=== PATIENT | female | born 1995 | race Caucasian/White ===

== ENCOUNTER → 2021-06-30 | Outpatient (CLI) | payer BC ==
--- NOTE | 2021-06-30 15:22 | EEG ---
ELECTROENCEPHALOGRAM REPORT DATE OF SERVICE: 06/30/2021. CLINICAL HISTORY: This is a 26-year-old woman with reported syncopal episode. The video EEG is obtained to evaluate for seizure and epileptiform activity. RELEVANT MEDICATION: The patient is on Lamictal. EEG TYPE: A routine 21-channel EEG is performed with video using the 10/20 electrode placement system. DESCRIPTION: Wakefulness and drowsiness are obtained. During wakefulness, the posterior- dominant rhythm consists of low to moderate voltage that is well modulated and well sustained of 9-10 hertz activity. There is no physiological stage 2 sleep architecture seen. There is no focal slowing. Interictal and ictal is none. ACTIVATION PROCEDURE: Photic stimulation did evoke a posterior driving response at multiple low flash frequencies. There is no abnormality during the photic stimulation. Hyperventilation is not performed. CLINICAL INTERPRETATION: This is a normal routine EEG. There are no focal slowing, epileptiform discharges or seizure on the EEG. Clinical correlation is recommended. RECOMMENDATION: If there continues to be a concern for seizures, recommend prolonged ambulatory EEG or epilepsy monitoring unit (EMU). MMODL / IJN: [id number] / NANCY
== END ==
LOC: NEUROMAIN 08:08
PROVIDERS: ATTEND Family Medicine
DX: R55 Syncope and collapse (principal); Z88.2 Allergy status to sulfonamides
CPT/HCPCS: 95819

== ENCOUNTER 2022-03-29 19:14 | Emergency (ER) | payer BC ==
[2022-03-29 20:07] VITALS: RESP 16; TEMP 97.5
[2022-03-29 20:38] LABS: Appearance,Urine Cloudy (Clear); Bacteria,Urine Rare /hpf; Bilirubin,Urine Negative (Negative); Blood,Urine Small (Negative); Color,Urine Yellow; Glucose,Urine (UA) Negative (Negative); Hyaline Casts,Urine 1 /lpf (0-2); Ketones,Urine Trace (Negative); Leukocyte Esterase,Urine Moderate (Negative); Mucus,Urine Moderate /hpf; Nitrite,Urine Negative (Negative); Protein,Urine 1+ (Negative); RBC,Urine 60 /hpf (0-5); Specific Gravity,Urine 1.024 (1.001-1.035); Squamous Epithelial Cell,Urine 5 /hpf (0-4); Urobilinogen,Urine <2.0 mg/dL (<2.0); WBC,Urine 12 /hpf (0-5)
[2022-03-29] MEDS ORDERED: cefTRIAXone IN SWFI 1,000 MG/10 ML SYRINGE IVP STA (22:08)
--- NOTE | 2022-03-29 22:44 | US ---
EXAMINATION TYPE: US kidneys/renal and bladder DATE OF EXAM: 03/29/2022 COMPARISON: NONE CLINICAL HISTORY: flank pain. Left flank pain, patient is EXAM MEASUREMENTS: Right Kidney: 13.1 x 4.8 x 4.4 cm Left Kidney: 12.8 x 5.6 x 6.0 cm Right Kidney: No hydronephrosis or masses seen Left Kidney: mild hydronephrosis Bladder: mildly distended Bilateral Jets not visualized IMPRESSION: There is a mild left-sided hydronephrosis. No renal mass. No evidence of bladder mass.
[2022-03-29 23:19] LABS: Basophils % (A) 0 %; Eosinophils # (A) 0.1 k/uL (0-0.7); Eosinophils % (A) 2 %; HCT 32.2 % (34.0-46.0); HGB 10.1 gm/dL (11.4-16.0); Hypochromasia Slight; Lymphocytes # (A) 0.8 k/uL (1.0-4.8); Lymphocytes % (A) 9 %; MCH 26.9 pg (25.0-35.0); MCHC 31.4 g/dL (31.0-37.0); MCV 85.5 fL (80.0-100.0); Mean Platelet Volume 7.5; Monocytes # (A) 0.5 k/uL (0-1.0); Monocytes % (A) 6 %; Neutrophils # (A) 7.1 k/uL (1.3-7.7); Neutrophils % (A) 82 %; Platelet Count 307 k/uL (150-450); RBC 3.76 m/uL (3.80-5.40); RDW 14.8 % (11.5-15.5); WBC 8.6 k/uL (3.8-10.6)
[2022-03-29 23:39] LABS: ALT 18 U/L (4-34); African American GFR (CKD) >90 (>60 ml/min/1.73 sqM); Albumin 4.1 g/dL (3.5-5.0); Anion Gap 12 mmol/L; Blood Urea Nitrogen 9 mg/dL (7-17); Calcium 9.3 mg/dL (8.4-10.2); Carbon Dioxide 19 mmol/L (22-30); Chloride 104 mmol/L (98-107); Glucose 71 mg/dL (74-99); Non-African American GFR(CKD) >90 (>60 ml/min/1.73 sqM); Sodium 135 mmol/L (137-145); Total Bilirubin 0.5 mg/dL (0.2-1.3)
[2022-03-29] MEDS ORDERED: SODIUM CHLORIDE 0.9% 2,000 ML IV ONE (23:46)
--- NOTE | 2022-03-29 23:49 | US ---
EXAMINATION TYPE: US OB >= 14 wk fetus DATE OF EXAM: 03/29/2022 COMPARISON: None CLINICAL HISTORY: back pain Left side flank pain. TECHNIQUE: Transabdominal (TA) GESTATIONAL AGE / DATING Physician Established: (28 weeks/6 days) EDC: 06/15/2022 Dates by Current Scan: (30 weeks/2 days) EDC: 06/05/2022 Beta HCG (if available): Not available at this time SURVEY IUP: Single PLACENTA: Anterior PREVIA: No Previa ANA ROSA: 12.4 cm Normal CERVICAL LENGTH (transabdominal: norm > 3.0cm): 3.8 cm BIOMETRY PRESENTATION: Vertex BPD: 7.5 cm 30 weeks / 2 days HC: 27.9 cm 30 weeks / 4 days AC: 25.7 cm 30 weeks / 0 days FL: 5.7 cm 30 weeks / 0 days ESTIMATED WEIGHT IN GRAMS: 1490 grams ESTIMATED WEIGHT IN LBS/OZ: 3 lbs. 5 oz. WEIGHT PERCENTAGE BASED ON ESTABLISHED DATES: 79% HC/AC: 1.1 Normal FL/AC: 22% Normal HEART RATE: 138 bpm RHYTHM: Normal IMPRESSION: The ultrasound gestational age is 30 weeks and 2 days. The PATRICK is 06/05/2022. No complicating process seen.
[2022-03-29 23:57] LABS: Potassium 4.6 mmol/L (3.5-5.1)
[2022-03-29 23:58] LABS: AST 44 U/L (14-36); Alkaline Phosphatase 76 U/L (38-126)
--- NOTE | 2022-03-30 00:02 | ED ---
General Adult HPI - General Chief complaint: Back Pain/Injury Stated complaint: back pain Time Seen by Provider: 03/29/22 21:40 Source: patient Mode of arrival: ambulatory Limitations: no limitations - History of Present Illness Initial comments: Patient is a 26-year-old female presenting with chief complaint of left-sided flank pain. Patient is currently 29 weeks . Patient has been experiencing intermittent left-sided flank pain over the last day. She denies any dysuria, hematuria, fever, chills, nausea, vomiting, chest pain, shortness of breath, abdominal pain or pelvic pain, vaginal discharge or bleeding. - Related Data Previous Rx's Medication Instructions Recorded traMADol HCl [Ultram] 50 mg PO Q4H PRN #20 tab 08/03/14 Ibuprofen [Motrin] 600 mg PO Q8HR PRN #12 tab 05/02/15 Nitrofurantoin Monohyd/M-Cryst 100 mg PO Q12HR 7 Days #14 cap 03/30/22 [Macrobid] Allergies Allergy/AdvReac Type Severity Reaction Status Date / Time silver sulfadiazine Allergy Unknown Verified 03/29/22 20:07 [From Silvadene] Sulfa (Sulfonamide Allergy Unknown Verified 03/29/22 20:07 Antibiotics) sulfamethoxazole Allergy Unknown Verified 03/29/22 20:07 [From Septra] trimethoprim [From Septra] Allergy Unknown Verified 03/29/22 20:07 Review of Systems ROS Statement: Those systems with pertinent positive or pertinent negative responses have been documented in the HPI. ROS Other: All systems not noted in ROS Statement are negative. Past Medical History Additional Past Medical History / Comment(s): cognitive impairment History of Any Multi-Drug Resistant Organisms: None Reported Past Surgical History: Adenoidectomy, Tonsillectomy Past Psychological History: ADD/ADHD Smoking Status: Never smoker Past Alcohol Use History: None Reported Past Drug Use History: None Reported General Exam Limitations: no limitations General appearance: alert, in no apparent distress Head exam: Present: atraumatic, normocephalic, normal inspection Eye exam: Present: normal appearance, EOMI. Absent: scleral icterus, periorbital swelling Neck exam: Present: normal inspection Respiratory exam: Present: normal lung sounds bilaterally. Absent: respiratory distress, wheezes, rales, rhonchi, stridor Cardiovascular Exam: Present: regular rate, normal rhythm, normal heart sounds. Absent: systolic murmur, diastolic murmur, rubs, gallop, clicks Back exam: Present: normal inspection. Absent: CVA tenderness (R), CVA tenderness (L) Neurological exam: Present: alert, oriented X3, CN II-XII intact Psychiatric exam: Present: normal affect, normal mood Skin exam: Present: warm, dry, intact, normal color. Absent: rash Course Vital Signs 03/29/22 03/29/22 20:04 22:00 Temperature 97.5 F L Pulse Rate 97 Respiratory 16 Rate Blood Pressure 142/73 113/64 O2 Sat by Pulse 100 Oximetry Medical Decision Making - Medical Decision Making Patient is a 26-year-old female currently 29 weeks presenting with chief complaint of left-sided back pain. Has been ongoing for the last day. On examination no paraspinal muscle tenderness or CVA tenderness. heart tones are 137. WBC 8.6. Lactic acid 0.9. GFR, BUN, creatinine WNL. Urine shows small blood with 60 RBCs. Moderate leukocytes with 12 urine WBCs. Rare bacteria. Ultrasound shows left-sided hydronephrosis, and ultrasound shows no complicating process. I spoke with the patient's DEVELOPMENTAL TRAINING COUNSELOR Dr. Tucker. He stated that we should treat for UTI and have her follow-up in the office this week. She is given a dose of Rocephin while here in the ER, is being sent home with Macrobid twice a day for 7 days. Educated the patient on these findings and instructions to follow up with her DEVELOPMENTAL TRAINING COUNSELOR in office this week. I instructed her to call the office tomorrow morning to arrange the appointment. Continue taking Tylenol as needed. Report back to ER with any new or worsening symptoms. Discussed return parameters answered all questions. Patient conveyed verbal understanding and agreed with the plan. I discussed this case with my attending Dr. Rand - Lab Data Result diagrams: 03/29/22 22:49 03/29/22 22:49 Lab Results 03/29/22 03/29/22 03/29/22 Range/Units 20:08 22:49 22:49 WBC 8.6 (3.8-10.6) k/uL RBC 3.76 L (3.80-5.40) m/uL Hgb 10.1 L (11.4-16.0) gm/dL Hct 32.2 L (34.0-46.0) % MCV 85.5 (80.0-100.0) fL MCH 26.9 (25.0-35.0) pg MCHC 31.4 (31.0-37.0) g/dL RDW 14.8 (11.5-15.5) % Plt Count 307 (150-450) k/uL MPV 7.5 Neutrophils % 82 % Lymphocytes % 9 % Monocytes % 6 % Eosinophils % 2 % Basophils % 0 % Neutrophils # 7.1 (1.3-7.7) k/uL Lymphocytes # 0.8 L (1.0-4.8) k/uL Monocytes # 0.5 (0-1.0) k/uL Eosinophils # 0.1 (0-0.7) k/uL Basophils # 0.0 (0-0.2) k/uL Hypochromasia Slight Sodium 135 L (137-145) mmol/L Potassium 4.6 (3.5-5.1) mmol/L Chloride 104 (98-107) mmol/L Carbon Dioxide 19 L (22-30) mmol/L Anion Gap 12 mmol/L BUN 9 (7-17) mg/dL Creatinine 0.54 (0.52-1.04) mg/dL Est GFR (CKD-EPI)AfAm >90 (>60 ml/min/1.73 sqM) Est GFR (CKD-EPI)NonAf >90 (>60 ml/min/1.73 sqM) Glucose 71 L (74-99) mg/dL Plasma Lactic Acid Reggie (0.7-2.0) mmol/L Calcium 9.3 (8.4-10.2) mg/dL Total Bilirubin 0.5 (0.2-1.3) mg/dL AST 44 H (14-36) U/L ALT 18 (4-34) U/L Alkaline Phosphatase 76 (38-126) U/L Total Protein 7.0 (6.3-8.2) g/dL Albumin 4.1 (3.5-5.0) g/dL Urine Color Yellow Urine Appearance Cloudy H (Clear) Urine pH 6.0 (5.0-8.0) Ur Specific [place] 1.024 (1.001-1.035) Urine Protein 1+ H (Negative) Urine Glucose (UA) Negative (Negative) Urine Ketones Trace H (Negative) Urine Blood Small H (Negative) Urine Nitrite Negative (Negative) Urine Bilirubin Negative (Negative) Urine Urobilinogen <2.0 (<2.0) mg/dL Ur Leukocyte Esterase Moderate H (Negative) Urine RBC 60 H (0-5) /hpf Urine WBC 12 H (0-5) /hpf Ur Squamous Epith Cells 5 H (0-4) /hpf Urine Bacteria Rare H (None) /hpf Hyaline Casts 1 (0-2) /lpf Urine Mucus Moderate H (None) /hpf 03/29/22 Range/Units 23:13 WBC (3.8-10.6) k/uL RBC (3.80-5.40) m/uL Hgb (11.4-16.0) gm/dL Hct (34.0-46.0) % MCV (80.0-100.0) fL MCH (25.0-35.0) pg MCHC (31.0-37.0) g/dL RDW (11.5-15.5) % Plt Count (150-450) k/uL MPV Neutrophils % % Lymphocytes % % Monocytes % % Eosinophils % % Basophils % % Neutrophils # (1.3-7.7) k/uL Lymphocytes # (1.0-4.8) k/uL Monocytes # (0-1.0) k/uL Eosinophils # (0-0.7) k/uL Basophils # (0-0.2) k/uL Hypochromasia Sodium (137-145) mmol/L Potassium (3.5-5.1) mmol/L Chloride (98-107) mmol/L Carbon Dioxide (22-30) mmol/L Anion Gap mmol/L BUN (7-17) mg/dL Creatinine (0.52-1.04) mg/dL Est GFR (CKD-EPI)AfAm (>60 ml/min/1.73 sqM) Est GFR (CKD-EPI)NonAf (>60 ml/min/1.73 sqM) Glucose (74-99) mg/dL Plasma Lactic Acid Reggie 0.9 (0.7-2.0) mmol/L Calcium (8.4-10.2) mg/dL Total Bilirubin (0.2-1.3) mg/dL AST (14-36) U/L ALT (4-34) U/L Alkaline Phosphatase (38-126) U/L Total Protein (6.3-8.2) g/dL Albumin (3.5-5.0) g/dL Urine Color Urine Appearance (Clear) Urine pH (5.0-8.0) Ur Specific [place] (1.001-1.035) Urine Protein (Negative) Urine Glucose (UA) (Negative) Urine Ketones (Negative) Urine Blood (Negative) Urine Nitrite (Negative) Urine Bilirubin (Negative) Urine Urobilinogen (<2.0) mg/dL Ur Leukocyte Esterase (Negative) Urine RBC (0-5) /hpf Urine WBC (0-5) /hpf Ur Squamous Epith Cells (0-4) /hpf Urine Bacteria (None) /hpf Hyaline Casts (0-2) /lpf Urine Mucus (None) /hpf Disposition Clinical Impression: UTI (urinary tract infection) Disposition: HOME SELF-CARE Condition: Fair Instructions (If sedation given, give patient instructions): Flank Pain (ED), Back Pain (ED), Urinary Tract Infection in (ED) Additional Instructions: Follow up with Dr. Tucker in the office this week, call the office tomorrow morning to arrange the appointment. Take medication as prescribed. Take Tylen ol as needed for pain control. Report back to ER with any new or worsening symptoms. Prescriptions: Nitrofurantoin Monohyd/M-Cryst [Macrobid] 100 mg PO Q12HR 7 Days #14 cap Is patient prescribed a controlled substance at d/c from ED?: No Referrals: Latoya Delaney DO [Primary Care Provider] - 1-2 days Gil Tucker MD [STAFF PHYSICIAN] - 1-2 days Time of Disposition: 00:43
[2022-03-30 01:18] VITALS: BP 132/87; PULSE 102
== END 2022-03-30 01:17 | disposition home or self-care (01) ==
LOC: EC 19:14
DX: N39.0 Urinary tract infection, site not specified (principal); Z88.2 Allergy status to sulfonamides; Z88.8 Allergy status to other drugs, medicaments and biological substances
CPT/HCPCS: 36415; 80053; 83605; 85025; 81001; 87086; 76805; 76770; 99284; 96374; 96361; J0696

== ENCOUNTER 2022-04-17 19:51 | Outpatient (CLI) | payer BC ==
[2022-04-17] MEDS: LACTATED RINGERS 1,000 ML IV SCH ×2 (20:40→21:39)
[2022-04-17 20:45] LABS: Appearance,Urine Cloudy (Clear); Bilirubin,Urine Negative (Negative); Blood,Urine Large (Negative); Budding Yeast,Urine Few /hpf; Color,Urine Yellow; Glucose,Urine (UA) Negative (Negative); Ketones,Urine Trace (Negative); Leukocyte Esterase,Urine Small (Negative); Mucus,Urine Occasional /hpf; Nitrite,Urine Negative (Negative); PH, Urine 6.5 (5.0-8.0); Protein,Urine 1+ (Negative); RBC,Urine >182 /hpf (0-5); Specific Gravity,Urine 1.018 (1.001-1.035); Squamous Epithelial Cell,Urine 4 /hpf (0-4); Urobilinogen,Urine <2.0 mg/dL (<2.0); WBC,Urine 20 /hpf (0-5)
[2022-04-17 20:45] LABS: Glucose,Whole Blood 96 mg/dL (70-110)
[2022-04-17 22:03] VITALS: BP 127/73; PULSE 107; RESP 18; TEMP 97.9
== END 2022-04-17 21:50 | disposition home or self-care (01) ==
LOC: FBPOP 19:51
PROVIDERS: ATTEND Obstetrics & Gynecology
DX: O23.43 Unspecified infection of urinary tract in pregnancy, third trimester (principal); Z3A.32 32 weeks gestation of pregnancy; Z88.2 Allergy status to sulfonamides
CPT/HCPCS: 59025; 99214; 96365; 81001; 87086; J0690

== ENCOUNTER 2022-06-11 06:15 | Inpatient (IN) | payer BC ==
[2022-06-11] MEDS ORDERED: LIDOCAINE 0.5% (PF) 5 MG/ML (50 ML SDV) SQ PRN (06:37)
[2022-06-11] MEDS ORDERED: TERBUTALINE 1 MG/ML VIAL SQ PRN (06:37)
[2022-06-11] MEDS ORDERED: PENICILLIN G POTASSIUM 5,000,000 UNIT in DEXTROSE 5% IN WATER 100 ML IVPB STA ×2 (06:40)
[2022-06-11] MEDS ORDERED: OXYTOCIN 30 UNITS/500 ML NS 30 UNIT in SALINE 1 500ML.BAG IV SCH (06:45)
[2022-06-11 07:04] LABS: Glucose,Whole Blood 94 mg/dL (70-110)
[2022-06-11] MEDS: LACTATED RINGERS 1,000 ML IV SCH ×2 (07:14→15:55)
[2022-06-11 07:15] LABS: Basophils % (A) 0 %; Eosinophils # (A) 0.2 k/uL (0-0.7); Eosinophils % (A) 2 %; HCT 31.3 % (34.0-46.0); HGB 10.4 gm/dL (11.4-16.0); Hypochromasia Slight; Lymphocytes # (A) 0.8 k/uL (1.0-4.8); Lymphocytes % (A) 10 %; MCH 27.4 pg (25.0-35.0); MCHC 33.4 g/dL (31.0-37.0); MCV 82.2 fL (80.0-100.0); Mean Platelet Volume 7.8; Monocytes # (A) 0.4 k/uL (0-1.0); Monocytes % (A) 5 %; Neutrophils # (A) 6.4 k/uL (1.3-7.7); Neutrophils % (A) 80 %; Platelet Count 318 k/uL (150-450); RBC 3.81 m/uL (3.80-5.40)
[2022-06-11] MEDS ORDERED: BUTORPHANOL 1 MG/ML 1 ML VIAL IV PRN (08:57)
--- NOTE | 2022-06-11 09:03 | P.HPOB ---
History of Present Illness H&P Date: 06/11/22 Chief Complaint: 39-6/7 weeks, induction the patient is a 27-year-old 2 para 0010 admitted at 39-6/7 weeks as established by last menstrual period and confirmed by ultrasound. She is admitted for induction of labor with a favorable cervix secondary to a generalized sensation of decreased movement and the base of type 2 diabetes. On labor and delivery, all signs reassuring with a category 1 heart rate tracing. Her has been otherwise uncomplicated for the most part. She reports that her blood sugars have been relatively normal throughout the but are subject to lability if she does not eat properly. Group B strep status is positive. 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 Obstetrical history: 2 para 0010 with one early miscarriage and current statistics listed in history present illness. EDC of 06/12/2022 was established by last menstrual period and confirmed by second trimester ultrasound. Laboratory workup demonstrates a blood type of O+ with a negative antibody screen. Rubella status is immune. The remainder of the laboratory workup was within normal limits. The patient was pre-gestational type II diabetic and did not have diabetic testing as a result. Group B strep status is positive. Gynecologic history: Unremarkable with no history of any infections to include STDs aside from the history of Valtrex which has remained dormant during the and has been prophylaxis since 36 weeks. Review of Systems review of systems is confined to history of present illness. Past Medical History Past Medical History: Diabetes Mellitus Additional Past Medical History / Comment(s): cognitive impairment History of Any Multi-Drug Resistant Organisms: None Reported Past Surgical History: Adenoidectomy, Tonsillectomy Additional Past Surgical History / Comment(s): [place] teeth Past Anesthesia/Blood Transfusion Reactions: No Reported Reaction Past Psychological History: ADD/ADHD Smoking Status: Never smoker Past Alcohol Use History: None Reported Past Drug Use History: None Reported Medications and Allergies Home Medications Medication Instructions Recorded Confirmed Type Ascorbic Acid [Vitamin C] 500 mg PO DAILY 04/17/22 06/11/22 History Cranberry Conc/C/Bacill Coag 1 tab PO DAILY 04/17/22 06/11/22 History [Cranberry Urinary 250-30-3.5MG] Cyanocobalamin [Vitamin B-12] 1 tab PO DAILY 04/17/22 06/11/22 History Ferrous Sulfate, Dried [Iron] 159 mg PO DAILY 04/17/22 06/11/22 History Vit No.180/Iron/Folic 1 each PO DAILY 04/17/22 06/11/22 History [ Plus Tablet] Pyridoxine [Vitamin B-6] 50 mg PO DAILY 04/17/22 06/11/22 History metFORMIN HCL 500 mg PO BID 04/17/22 06/11/22 History Cetirizine HCl [Zyrtec] 5 mg PO DAILY 06/11/22 06/11/22 History valACYclovir HCL [Valtrex] 500 mg PO DAILY 06/11/22 06/11/22 History Allergies Allergy/AdvReac Type Severity Reaction Status Date / Time silver sulfadiazine Allergy Severe Anaphylaxis Verified 06/11/22 06:37 [From Silvadene] Sulfa (Sulfonamide Allergy Severe Anaphylaxis Verified 06/11/22 06:37 Antibiotics) sulfamethoxazole Allergy Severe Anaphylaxis Verified 06/11/22 06:37 [From Septra] trimethoprim [From Septra] Allergy Severe Anaphylaxis Verified 06/11/22 06:37 Exam Vital Signs Temp Pulse Resp BP Pulse Ox 06/11/22 06:37 97.0 F L 102 H 18 129/77 99 Intake and Output 06/10/22 06/11/22 06/11/22 22:59 06:59 14:59 Other: Weight 115.666 kg in general, this is a moderately obese white female in no acute distress. Her heart has a regular rhythm and rate without murmur. Her lungs are clear to auscultation bilaterally in all melchor. Her abdomen is obese, nondistended, g ravid, has normal active bowel sounds, soft, nontender, without any palpable masses aside from uterine fundus. Her extremities are without any cyanosis, clubbing, or significant edema and are nontender to palpation bilaterally. Digital cervical examination on straights her cervix to be 2-37 m dilated, approximately 60% effaced, the vertex in presentation at -2 station. Artificial rupture of membranes is carried out demonstrating clear fluid. Results Result Diagrams: 06/11/22 06:55 Abnormal Lab Results - Last 24 Hours (Table) 06/11/22 Range/Units 06:55 Hgb 10.4 L (11.4-16.0) gm/dL Hct 31.3 L (34.0-46.0) % Lymphocytes # 0.8 L (1.0-4.8) k/uL Assessment and Plan (1) Type 2 diabetes mellitus Current Visit: Yes Status: Acute Code(s): E11.9 - TYPE 2 DIABETES MELLITUS WITHOUT COMPLICATIONS SNOMED Code(s): 69116414 (2) Term Current Visit: Yes Status: Acute Code(s): Z34.90 - ENCNTR FOR SUPRVSN OF NORMAL , UNSP, UNSP TRIMESTER SNOMED Code(s): 55043369 Plan: the patient is admitted for essentially elective induction primarily secondary to her generalized sense of no movement over the last week and further inability to demonstrate well-being in that fashion. On labor and del julio, she had antibiotics started for group B strep prophylaxis and Pitocin augmentation started as well. She had what artificial rupture of membranes. She will have close maternal and surveillance and expectant management will be practiced. She is a good candidate for either IV, epidural, or nitrous analgesia, whichever she may choose.
[2022-06-11 09:51] LABS: Glucose,Whole Blood 87 mg/dL (70-110)
[2022-06-11] MEDS: PENICILLIN G POTASSIUM 2,500,000 UNIT in DEXTROSE 5% IN WATER 100 ML IVPB SCH ×4 (11:08→15:22)
[2022-06-11 11:57] LABS: Glucose,Whole Blood 87 mg/dL (70-110)
[2022-06-11 15:05] LABS: Glucose,Whole Blood 78 mg/dL (70-110)
[2022-06-11] MEDS ORDERED: ceFAZolin 3 GM in SODIUM CHLORIDE 0.9% 100 ML IVPB ONE (16:54)
[2022-06-11] MEDS ORDERED: CITRIC ACID-SODIUM CITRATE 15 ML CUP PO ONE (16:54)
[2022-06-11] MEDS ORDERED: LACTATED RINGERS 1,000 ML IV ONE (16:54)
[2022-06-11] MEDS ORDERED: OXYTOCIN 30 UNITS/500 ML NS BAG IV ONE (17:13)
[2022-06-11] MEDS ORDERED: MORPHINE SULFATE (PF) 0.3 MG/0.3 ML SYR ONE (17:13)
[2022-06-11] MEDS ORDERED: KETOROLAC 15 MG/ML 1 ML VIAL ONE (17:13)
[2022-06-11] MEDS ORDERED: PHENYLEPHRINE-0.9% NACL SYG 1,000 MCG/10 ML SYRINGE ONE (17:13)
[2022-06-11] MEDS ORDERED: NALBUPHINE 10 MG/ML (1 ML AMP) ONE (17:13)
[2022-06-11] MEDS ORDERED: ONDANSETRON 4 MG/2 ML VIAL ONE (17:13)
[2022-06-11] MEDS ORDERED: SODIUM CHLORIDE 0.9% 100 ML BAG ONE (17:13)
[2022-06-11] MEDS ORDERED: ceFAZolin 1,000 MG VIAL ONE (17:13)
[2022-06-11] MEDS ORDERED: METOCLOPRAMIDE 5 MG/ML 2 ML VIAL IVP PRN (18:11)
[2022-06-11] MEDS ORDERED: ZOLPIDEM 5 MG TAB PO PRN (18:11)
[2022-06-11] MEDS ORDERED: ONDANSETRON 4 MG/2 ML VIAL IVP PRN (18:11)
[2022-06-11] MEDS ORDERED: diphenhydrAMINE 25 MG CAP PO PRN (18:11)
[2022-06-11] MEDS ORDERED: diphenhydrAMINE 50 MG CAP PO PRN (18:11)
[2022-06-11] MEDS ORDERED: LANOLIN CREAM 5 GM TUBE TOPICAL PRN (18:11)
[2022-06-11] MEDS ORDERED: NALOXONE 0.4 MG/ML 1 ML VIAL IV PRN (18:11)
[2022-06-11] MEDS ORDERED: SIMETHICONE 80 MG CHEWABLE PO PRN (18:11)
[2022-06-11] MEDS ORDERED: diphenhydrAMINE 50 MG/ML 1 ML VIAL IVP PRN ×2 (18:11)
[2022-06-11] MEDS ORDERED: KETOROLAC 15 MG/ML 1 ML VIAL IVP PRN (18:11)
[2022-06-11] MEDS ORDERED: LACTATED RINGERS 1,000 ML IV SCH (18:15)
--- NOTE | 2022-06-11 18:20 | P.OP ---
Date of Procedure: 06/11/22 Preoperative Diagnosis: #1. 39-6/7 weeks, induction #2. Type 2 diabetes #3. Generalized decreased movement #4. intolerance of labor Postoperative Diagnosis: same plus #5. occiput posterior Procedure(s) Performed: primary low-transverse section Anesthesia: spinal Surgeon: Gil Tucker Route Supervisor #1: Lyly Best Estimated Blood Loss (ml): 547 IV fluids (ml): 1,000 Urine output (ml): 250 Pathology: other (placenta) Condition: stable Disposition: floor Operative Findings: rapidly, the patient had made very slow progress from the time of induction and, in the active phase of labor began to have repetitive late decelerations. These mostly resolved with stoppage of the Pitocin augmentation though some decelerations were still present. As she was remote from delivery at around 5 cm with the head not engaged in the pelvis and having nonreassuring status, the decision was made after discussion with the patient and her and family to proceed with primary low-transverse section. She was taken to the operating room where she was delivered of a viable 7 lbs. 1 oz. baby girl with Apgars of 9 at 1 minute and 9 at 5 minutes delivered in the left occiput posterior position. The placenta was delivered manually, intact, and grossly normal with a grossly normal three-vessel cord. The uterus, tubes, and ovaries were entirely normal to inspection. Maternal abdominal wall thickness was approximately 10 cm. Description of Procedure: the patient was prepped and draped in usual fashion after spinal anesthesia was administered by the anesthesiologist. A Pfannenstiel incision was made and extended into the abdominal cavity without difficulty. An Joe self-retaining retractor was placed in standard fashion. The bladder peritoneum was significantly distal to the intended site of incision and was left intact. A 2 cm incision was made in the transverse plane of the lower uterine segment to enter the uterus at which time clear fluid was again noted. The incision was extended in both directions using the bandage scissors. The head was delivered up and through the incision where the nose and mouth were thoroughly suctioned. The remainder of the was delivered onto the field where the cord was doubly clamped, cut, and the passed resuscitative measures with weight and Apgars as noted above. cord blood was collected per protocol. The placenta was delivered manually and intact as noted above. The uterus was exteriorized and the interior cavity of uterus swept of any remaining placental or membranous fragments. The margins of the uterine incision were grasped with De La Rosa clamps and the incision closed in 2 layers. The first layer was a running locking stitch of 0 chromic catgut from margin to margin followed by a running imbricating stitch of 0 chromic catgut from margin to margin. Hemostasis appeared to be excellent. The posterior cul-de-sac was suctioned with a guard followed by clean laparotomy sponge. The uterus was replaced within the abdominal cavity and the incision examined and found to be hemostatic aside from one small point near the right angle which ultimately required a single byrgsn-pp-fulmy stitch of 0 chromic catgut. Following this, hemostasis was excellent. The gutters were swept of any remaining blood, fluid, or clot. After ensuring hemostasis, the parietal peritoneum was loosely reapproximated in the layer of muscles examined and found to be hemostatic. The fascia was closed with 2 running stitches of 0 Vicryl proceeding from the lateral margins to the midpoint. The subcutaneous tissues were irrigated, made hemostatic with the Bovie, and reapproximated with a running stitch of 30 plain catgut. The skin was approximated with a running subcuticular stitch of 4-0 Vicryl followed by half-inch Steri-Strips placed with Mastisol. Quantitative blood loss for the procedure was 547 mL. There were no complications. All sponge, instrument, needle counts were correct. The patient tolerated the procedure well and proceeded to the recovery room in stable condition. Both mother and infant are resting comfortably in recovery.
[2022-06-11] MEDS: SENNOSIDES-DOCUSATE SODIUM 1 EACH TAB PO SCH (20:33)
[2022-06-11] MEDS: ACETAMINOPHEN TAB 500 MG TAB PO SCH (22:05)
[2022-06-11 22:18] LABS: Glucose,Whole Blood 93 mg/dL (70-110)
[2022-06-11] MEDS: IBUPROFEN 600 MG TAB PO SCH (23:56)
[2022-06-12] MEDS: ACETAMINOPHEN TAB 500 MG TAB PO SCH ×4 (03:17→23:27)
[2022-06-12 06:20] LABS: Basophils % (A) 0 %; Eosinophils # (A) 0.1 k/uL (0-0.7); Eosinophils % (A) 1 %; HCT 23.2 % (34.0-46.0); HGB 7.6 gm/dL (11.4-16.0); Hypochromasia Slight; Lymphocytes # (A) 0.7 k/uL (1.0-4.8); Lymphocytes % (A) 8 %; MCH 27.5 pg (25.0-35.0); MCHC 32.9 g/dL (31.0-37.0); MCV 83.7 fL (80.0-100.0); Mean Platelet Volume 7.6; Monocytes # (A) 0.8 k/uL (0-1.0); Monocytes % (A) 9 %; Neutrophils # (A) 7.4 k/uL (1.3-7.7); Neutrophils % (A) 81 %; Platelet Count 242 k/uL (150-450); RBC 2.78 m/uL (3.80-5.40); WBC 9.1 k/uL (3.8-10.6)
[2022-06-12] MEDS: IBUPROFEN 600 MG TAB PO SCH ×3 (09:17→19:48)
[2022-06-12] MEDS: SENNOSIDES-DOCUSATE SODIUM 1 EACH TAB PO SCH ×2 (09:18→19:47)
--- NOTE | 2022-06-12 10:57 | P.PNOBGPC ---
Subjective - Subjective Patient reports: Reports appetite normal, Reports voiding normally, Reports pain well controlled, Reports ambulating normally : doing well Objective - Vital Signs Latest vital signs: Vital Signs Temp Pulse Resp BP Pulse Ox 06/12/22 08:30 98.1 F 98 16 90/59 06/12/22 08:17 98.1 F 98 16 90/59 97 06/12/22 04:00 98 F 82 18 118/88 98 06/12/22 00:00 97.6 F 110 H 18 98/66 97 06/11/22 20:09 109 H 18 112/63 06/11/22 19:39 97 F L 107 H 18 103/64 98 06/11/22 19:09 100 18 102/56 98 06/11/22 18:54 94 16 100/55 98 06/11/22 18:39 90 17 96/53 95 06/11/22 18:24 95 17 94/53 97 06/11/22 18:09 97.3 F L 98 18 92/54 99 Intake and Output 06/11/22 06/12/22 06/12/22 22:59 06:59 14:59 Intake Total 1221 480 Output Total 847 200 25 Balance 374 -200 455 Intake: IV 1000 Intake, IV Titration 21 Amount Oxytocin 30 Units/500 ml 21 Ns 30 unit In Saline 1 500ml.bag @ Per Protocol IV .Q0M [facility] Rx#:[id number] Oral 200 480 Output: Urine 300 200 25 Uretheral (Walker) 200 Output, Quantitative 547 Blood Loss Other: Voiding Method Indwelling Catheter - Exam Extremities: Present: normal Abdomen: Present: normal appearance, soft. Absent: distention, tenderness Incision: Present: normal, dry, intact Uterus: Present: normal, firm (the uterine fundus is tonic and appropriately tender at the umbilicus.) - Labs Labs: Abnormal Lab Results - Last 24 Hours (Table) 06/12/22 Range/Units 05:47 RBC 2.78 L (3.80-5.40) m/uL Hgb 7.6 L D (11.4-16.0) gm/dL Hct 23.2 L (34.0-46.0) % Lymphocytes # 0.7 L (1.0-4.8) k/uL Assessment and Plan (1) Type 2 diabetes mellitus Current Visit: Yes Status: Acute Code(s): E11.9 - TYPE 2 DIABETES MELLITUS WITHOUT COMPLICATIONS SNOMED Code(s): 44041372 (2) Term Current Visit: Yes Status: Acute Code(s): Z34.90 - ENCNTR FOR SUPRVSN OF NO RMAL , UNSP, UNSP TRIMESTER SNOMED Code(s): 26552719 (3) S/P section Current Visit: Yes Status: Acute Code(s): Z98.891 - HISTORY OF UTERINE SCAR FROM PREVIOUS SURGERY SNOMED Code(s): 036134007 Plan: continue routine postoperative and care. I have encouraged the patient ambulating the hallways routinely. I would anticipate possible discharge home tomorrow, pending no complications.
--- NOTE | 2022-06-12 11:10 | P.PN ---
Progress Note - Text 06/12/22 615am 37-year-old female status post with spinal Duramorph. Patient has a VAS of 4 with complains of pruritus which is subsided by the end of the day no complains of nausea vomiting this morning. Doing well
[2022-06-13] MEDS: IBUPROFEN 600 MG TAB PO SCH ×2 (04:15→10:19)
[2022-06-13] MEDS: ACETAMINOPHEN TAB 500 MG TAB PO SCH ×2 (05:54→12:17)
[2022-06-13] MEDS: SENNOSIDES-DOCUSATE SODIUM 1 EACH TAB PO SCH (08:03)
--- NOTE | 2022-06-13 10:04 | P.DS ---
Providers Date of admission: 06/11/22 06:15 Expected date of discharge: 06/13/22 Attending physician: Gil Tucker Primary care physician: Stated None - Discharge Diagnosis(es) (1) malposition, delivered, current hospitalization Current Visit: Yes Status: Acute (2) S/P section Current Visit: Yes Status: Acute (3) intolerance to labor, delivered, current hospitalization Current Visit: Yes Status: Acute (4) Obesity Current Visit: Yes Status: Acute (5) Type 2 diabetes mellitus Current Visit: Yes Status: Acute (6) Term Current Visit: Yes Status: Acute Hospital Course: This is a 27 year old 1 now para 1 woman who is admitted at 39-6/7 weeks' gestation for induction of labor secondary to gestational diabetes and decreased movement. She was admitted and underwent a standard Pitocin induction of labor with artificial rupture of membranes. She did progress to 5 cm dilated however had arrest of descent and intolerance of labor. She was therefore taken to the operating room for a primary low transverse section. Findings at the time of surgery were significant for a liveborn female infant with Apgars of 9 at 1 minute and 9 at 5 minutes with weight of 7 lbs. 1 oz. The patient's postoperative course was unremarkable. Her admission hemoglobin was 10.4 and her postop day 1 hemoglobin was 7.6. She was asymptomatic and had moderate to decreasing lochia. She was able to ambulate and void without difficulty and tolerated general diet on postoperative day #1. By postoperative day #2 she continued to do well. Her incision was well healing and her lochia was minimal. She did require some oral narcotic pain medication for breakthrough pain however otherwise pain was well-controlled. She was therefore discharged home on postoperative day #2 with routine instructions for postoperative care and follow-up Patient Condition at Discharge: Good Plan - Discharge Summary New Discharge Prescriptions: New Acetaminophen Tab [Tylenol] 1,000 mg PO Q6H tab Ibuprofen [Motrin] 600 mg PO Q6H #30 tab oxyCODONE HCL [OxyIR] 10 mg PO Q6H PRN #20 tab PRN Reason: Pain Scale 7 - 10 Continue Cetirizine HCl [Zyrtec] 5 mg PO DAILY metFORMIN HCL 500 mg PO BID Ferrous Sulfate, Dried [Iron] 159 mg PO DAILY Discontinued valACYclovir HCL [Valtrex] 500 mg PO DAILY No Action Ascorbic Acid [Vitamin C] 500 mg PO DAILY Vit No.180/Iron/Folic [ Plus Tablet] 1 each PO DAILY Cyanocobalamin [Vitamin B-12] 1 tab PO DAILY Pyridoxine [Vitamin B-6] 50 mg PO DAILY Cranberry Conc/C/Bacill Coag [Cranberry Urinary 250-30-3.5MG] 1 tab PO DAILY Discharge Medication List Ascorbic Acid [Vitamin C] 500 mg PO DAILY 04/17/22 [History] Cranberry Conc/C/Bacill Coag [Cranberry Urinary 250-30-3.5MG] 1 tab PO DAILY 04/17/22 [History] Cyanocobalamin [Vitamin B-12] 1 tab PO DAILY 04/17/22 [History] Ferrous Sulfate, Dried [Iron] 159 mg PO DAILY 04/17/22 [History] Vit No.180/Iron/Folic [ Plus Tablet] 1 each PO DAILY 04/17/22 [History] Pyridoxine [Vitamin B-6] 50 mg PO DAILY 04/17/22 [History] metFORMIN HCL 500 mg PO BID 04/17/22 [History] Cetirizine HCl [Zyrtec] 5 mg PO DAILY 06/11/22 [History] Acetaminophen Tab [Tylenol] 1,000 mg PO Q6H tab 06/13/22 [Rx] Ibuprofen [Motrin] 600 mg PO Q6H #30 tab 06/13/22 [Rx] oxyCODONE HCL [OxyIR] 10 mg PO Q6H PRN #20 tab 06/13/22 [Rx] Follow up Appointment(s)/Referral(s): Gil Tucker MD [STAFF PHYSICIAN] - 2 Weeks Activity/Diet/Wound Care/Special Instructions: Follow-up in 2 weeks after surgery in the office. Call the office with any concerning signs or symptoms including fever greater than 101, severe abdominal pain, heavy vaginal bleeding, signs of wound infection, increased swelling or redness of the lower extremities, signs of depression. No driving for 2 weeks after surgery. No heavy lifting or vigorous activity until reevaluated in the office. No intercourse for 6 weeks after delivery. Discharge Disposition: HOME SELF-CARE
[2022-06-13 14:05] VITALS: BP 132/72; PULSE 82; RESP 16; TEMP 98
== END 2022-06-13 12:30 | disposition home or self-care (01) | DRG 786 ==
LOC: 4FBP 06:15
PROVIDERS: ADMIT Obstetrics & Gynecology; ATTEND Obstetrics & Gynecology
PROC: 3E033VJ Introduction of Other Hormone into Peripheral Vein, Percutaneous Approach (ICD-10-PCS; principal; 2022-06-11 06:30)
PROC: 10907ZC Drainage of Amniotic Fluid, Therapeutic from Products of Conception, Via Natural or Artificial Opening (ICD-10-PCS; principal; 2022-06-11 06:30)
PROC: 10D00Z1 Extraction of Products of Conception, Low, Open Approach (ICD-10-PCS; principal; 2022-06-11 06:30)
DX: O36.8130 Decreased fetal movements, third trimester, not applicable or unspecified (principal); O24.12 Pre-existing type 2 diabetes mellitus, in childbirth; O98.52 Other viral diseases complicating childbirth; E11.9 Type 2 diabetes mellitus without complications; O64.0XX0 Obstructed labor due to incomplete rotation of fetal head, not applicable or unspecified; O61.0 Failed medical induction of labor; O76 Abnormality in fetal heart rate and rhythm complicating labor and delivery; O99.214 Obesity complicating childbirth; E66.9 Obesity, unspecified; O99.73 Diseases of the skin and subcutaneous tissue complicating the puerperium; L29.9 Pruritus, unspecified; B00.9 Herpesviral infection, unspecified; O99.344 Other mental disorders complicating childbirth; F90.9 Attention-deficit hyperactivity disorder, unspecified type; O99.824 Streptococcus B carrier state complicating childbirth; Z79.84 Long term (current) use of oral hypoglycemic drugs; Z79.899 Other long term (current) drug therapy; Z88.2 Allergy status to sulfonamides; Z88.1 Allergy status to other antibiotic agents; Z3A.39 39 weeks gestation of pregnancy; Z37.0 Single live birth
CPT/HCPCS: 85025; 86850; 86900; 86901; 88307

== ENCOUNTER → 2023-07-30 | Outpatient (CLI) | payer BC ==
--- NOTE | 2023-08-03 11:29 | MR ---
PRE AND POSTCONTRAST ENHANCED MRI OF THE BRAIN: CLINICAL HISTORY: Syncope and randomly falling, hemiplegia CONTRAST: Gadavist 12ml Multiplanar and multispin-echo imaging of the brain was performed both before and after the administr ation of contrast. The ventricles, basal cisterns and sulci overlying the cerebral convexities are within normal limits. There is no evidence for midline shift or mass effect. Acute intracranial hemorrhage or extra-axial collection is not evident. There are no abnormal areas of increased or decreased signal intensity within the brain parenchyma. Following contrast administration, there is no evidence for pathologic enhancement or enhancing mass. Small mucous retention cyst or polyp left maxillary sinus. Paranasal sinuses are otherwise well aerat ed. Mastoid air cells are well aerated. IMPRESSION: Unremarkable pre and postcontrast enhanced MRI of the brain.
== END | disposition home or self-care (01) ==
LOC: RADMRIMAIN 21:45
PROVIDERS: ATTEND Family Medicine
DX: R55 Syncope and collapse (principal); G81.90 Hemiplegia, unspecified affecting unspecified side
CPT/HCPCS: 70553; A9585

== ENCOUNTER → 2023-08-03 | Outpatient (CLI) | payer BC ==
--- NOTE | 2023-08-07 12:08 | CA ---
Transthoracic Echo Report Name: iNna Leo Age: 28 Gender: F : 1995 Exam Date: 08/03/2023 15:55 Exam Location: [place] [facility] Ht (in): 65 Wt (lb): 260 Ordering Physician: Latoya Delaney DO Attending/Referring Phys: Misael Delaney MD Therapeutic Dietitian Kathe Vidal RDCS Procedure CPT: Indications: R55 Syncope Cardiac Hx: Technical Quality: Fair Contrast 1: Agitated Saline Total Dose (mL): 10 Contrast 2: Total Dose (mL): MEASUREMENTS (Male / Female) Normal Values 2D ECHO LV Diastolic Diameter PLAX 4.1 cm 4.2 - 5.9 / 3.9 - 5.3 cm IVS Diastolic Thickness 1.2 cm 0.6 - 1.0 / 0.6 - 0.9 cm LVPW Diastolic Thickness 1.3 cm 0.6 - 1.0 / 0.6 - 0.9 cm LV Relative Wall Thickness 0.6 RV Internal Dim ED PLAX 2.5 cm LA Volume 31.0 cm??? 18 - 58 / 22 - 52 cm??? LA Volume Index 13.0 cm???/m??? 16 - 28 cm???/m??? M-MODE Aortic Root Diameter MM 2.5 cm LA Systolic Diameter MM 3.3 cm LA Ao Ratio MM 1.3 AV Cusp Separation MM 1.7 cm DOPPLER AV Peak Velocity 128.2 cm/s AV Peak Gradient 6.6 mmHg AV Mean Velocity 93.9 cm/s AV Mean Gradient 3.9 mmHg AV Velocity Time Integral 24.7 cm LVOT Peak Velocity 102.1 cm/s LVOT Peak Gradient 4.2 mmHg LVOT Velocity Time Integral 18.4 cm MV Area PHT 3.3 cm??? Mitral E Point Velocity 103.6 cm/s Mitral A Point Velocity 85.8 cm/s Mitral E to A Ratio 1.2 MV Deceleration Time 226.5 ms MV E' Velocity 8.3 cm/s Mitral E to MV E' Ratio 12.5 FINDINGS Left Ventricle Mildly increased left ventricular wall thickness. Normal left ventricular systolic function with no obvious regional wall motion abnormalities. Left ventricular cavity size normal. Left ventricular ejection fraction is estimated at 55-60%. Right Ventricle Normal right ventricular size and function. Right ventricular systolic pressure within normal limits. Right Atrium Normal right atrial size. Negative agitated saline bubble study for right to left shunt. Left Atrium Normal left atrial size. Mitral Valve Structurally normal mitral valve. No mitral stenosis, regurgitation or prolapse. Aortic Valve Trileaflet aortic valve. No aortic valve stenosis or regurgitation. Tricuspid Valve Structurally normal tricuspid valve. Trace tricuspid regurgitation. Pulmonic Valve Structurally normal pulmonic valve. Trace pulmonic regurgitation. Pericardium No pericardial effusion. Aorta Normal size aortic root and proximal ascending aorta. CONCLUSIONS Technically suboptimal study secondary to poor echo windows Left ventricular systolic function is normal Negative bubble study for [id number] shunt Consider transesophageal echo if clinically indicated Previewed by: Dr. Hugo Chris MD (Electronically Signed) Final Date: 07 August 2023 12:07
== END | disposition home or self-care (01) ==
LOC: RADECHMAIN 15:50
PROVIDERS: ATTEND Family Medicine
DX: G81.90 Hemiplegia, unspecified affecting unspecified side (principal); R55 Syncope and collapse
CPT/HCPCS: 93306

== ENCOUNTER → 2023-08-10 | Outpatient (CLI) | payer BC ==
--- NOTE | 2023-08-11 22:43 | EEG ---
ELECTROENCEPHALOGRAM REPORT Start of recording is 8:01 on 08/10/2023 and end of recording is 9:14 on 08/10/2023. CLINICAL HISTORY: This is a 28-year-old woman with reported syncopal episode and dizziness. The video EEG is obtained to evaluate for seizure epileptiform activity. RELEVANT MEDICATION: Per the operating room technician report, the patient is not on any antiepileptic drugs. EEG TYPE: EEG is performed using the 10/20 electrode placement system. DESCRIPTION: Wakefulness is obtained. During awake state, the posterior-dominant rhythm consists of [id number] voltage of 11 hertz activity that is well modulated, well sustained. There is no physiological stage 2 sleep architecture. There is no focal slowing. Interictal and ictal, there are sharp and slow waves over the left parietal central region. No seizures noted during the study. ACTIVATION PROCEDURE: Photic stimulation did evoke a posterior driving response. There is no abnormality during the photic stimulation. Hyperventilation is not performed. This is an abnormal routine EEG. The epileptiform discharges over the left parietal central can increase risk for focal seizure as well status epilepticus. Otherwise, the background is normal and there is no focal slowing or seizure noted during the study. I recommend a prolonged EEG or epilepsy monitor unit for further evaluation. I also recommend the patient to be evaluated by a neurologist and start her on antiepileptic drugs. RAFAEL / RENEEN: [id number] /
== END ==
LOC: NEUROMAIN 07:49
PROVIDERS: ATTEND Family Medicine
DX: R55 Syncope and collapse (principal); G81.90 Hemiplegia, unspecified affecting unspecified side; Z88.2 Allergy status to sulfonamides; Z88.1 Allergy status to other antibiotic agents; Z88.8 Allergy status to other drugs, medicaments and biological substances
CPT/HCPCS: 95812

== ENCOUNTER → 2023-09-03 | Outpatient (CLI) | payer BC | LOC: NEUROMAIN 07:45 | PROVIDERS: ATTEND Family Medicine | DX: R55 Syncope and collapse (principal); G81.90 Hemiplegia, unspecified affecting unspecified side; Z91.09 Other allergy status, other than to drugs and biological substances; Z88.2 Allergy status to sulfonamides; Z91.048 Other nonmedicinal substance allergy status | CPT/HCPCS: 95700; 95713 ==